=== PATIENT | male | born 1995 ===

== ENCOUNTER 2019-01-19 03:34 | Emergency (ER) | payer OTHER ==
--- NOTE | 2019-01-19 03:59 | ED ---
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 - History Of Current Complaint Chief Complaint: EDSubstanceAbuse Stated Complaint: ETOH PER EMS Time Seen by Provider: 01/19/19 03:44 Hx Obtained From: Patient Overdose Characteristics: Oral Timing Of Abuse: Binge Use Associated Signs And Symptoms: Vomiting - Allergies/Home Medications Allergies/Adverse Reactions: Allergies Allergy/AdvReac Type Severity Reaction Status Date / Time No Known Allergies Allergy Verified 01/19/19 03:44 Home Medications: Home Medications NK [No Home Medications Reported] 01/19/19 [History Confirmed 01/19/19] PMH/Surg Hx/FS Hx/Imm Hx Previously Healthy: No - LEVEL 5 CAVEAT ALCOHOL INTOXICATION - Surgical History Surgical History: Unable to Obtain/Confirm - LEVEL 5 CAVEAT ALCOHOL INTOXICATION Infectious Disease History: No Infectious Disease History: Denies: Traveled Outside the [place] in Last 30 Days - Family History Known Family History: Positive: Unknown - LEVEL 5 CAVEAT ALCOHOL INTOXICATION - Social History Occupation: Student Alcohol Use: Occasionally Substance Use Type: Reports: Other Substance Use Comment - Amount & Last Used: FRANK Smoking Status (MU): Unknown if Ever Smoked - Additional Comments History Additional Comments: LEVEL 5 CAVEAT ALCOHOL INTOXICATION Review of Systems All Other Systems Reviewed And Are Negative: No - Comments Additional Review of Systems Comments: LEVEL 5 CAVEAT ALCOHOL INTOXICATION Physical Exam - Summary Physical Exam Summary: LEVEL 5 CAVEAT ALCOHOL INTOXICATION Appearance: Well-appearing, Well-nourished, lying in bed comfortably Skin: Warm, dry, no obvious rash Eyes: sclera anicteric, no conjunctival pallor ENT: mucous membranes moist, pharynx appears normal Neck: Supple, nontender Respiratory: Clear to auscultation, no signs of respiratory distress Cardiovascular: Normal S1, S2. No murmurs. Normal distal pulses in tibial and radial bilaterally. Abdomen: Soft, nontender, normal active bowel sounds present Musculoskeletal: Normal, Strength/ROM Intact Neurological: Unresponsive to painful stimuli Psychiatric: affect is normal, does not appear anxious or depressed Triage Information Reviewed: Yes Vital Signs On Initial Exam: Initial Vitals Temp Pulse Resp BP Pulse Ox 96.8 F 69 16 108/69 96 01/19/19 03:36 01/19/19 03:36 01/19/19 03:36 01/19/19 03:36 01/19/19 03:36 Vital Signs Reviewed: Yes Diagnostics - Vital Signs Vital Signs Temp Pulse Resp BP Pulse Ox 01/19/19 03:36 96.8 F 69 16 108/69 96 - Laboratory Lab Statement: Any lab studies that have been ordered have been reviewed, and results considered in the medical decision making process. Course/Dx - Course Course Of Treatment: LEVEL 5 CAVEAT ALCOHOL INTOXICATION. This patient is a 23 year old M presenting to [facility] by EMS with a chief complaint of alcohol intoxication since [employer]FORMATION SYSTEM[employer]. Physical exam findings are nml, except pt is intoxicated and unresponsive to painful stimuli. Pt will be signed out to Dr. Arreguin at shift change at 0700 on 01/19/19, pending sobriety. - Diagnoses Provider Diagnoses: Alcohol intoxication Discharge ED - Sign-Out/Discharge Documenting (check all that apply): Sign-Out Patient Signing out patient TO: Nurys Arreguin - at shift change at 0700 on 01/19/19, pending sobriety. Receiving patient FROM: Todd Lundberg Patient Received Moderate/Deep Sedation with Procedure: No - Discharge Plan Condition: Improved Disposition: HOME Patient Education Materials: Alcohol Intoxication (ED), Abuse of Alcohol (ED) Referrals: [facility] [Outside] - Billing Disposition and Condition Condition: IMPROVED Disposition: Home - Attestation Statements Document Initiated by Becca: Yes Documenting Scribe: Anna Palacios Provider For Whom Robertae is Documenting (Include Credential): Todd Lundberg MD Scribe Attestation: Anna Corley, scribed for Todd Lundberg MD on 01/20/19 at 0619. Scribe Documentation Reviewed: Yes Provider Attestation: The documentation as recorded by the Anna santamaria accurately reflects the service I personally performed and the decisions made by me, Todd Lundberg MD Status of Scribe Document: Viewed
--- NOTE | 2019-01-19 07:21 | ED ---
Progress - Progress Note Progress Note: This patient is a 23-year old M presenting to [facility] with alcohol intoxication. This patient is a sign-out from Dr. Todd Lundberg to Dr. Nurys Arreguin at 0700 on 01/19/19 at shift change pending sobriety. Course/Dx - Course Course Of Treatment: This patient is a 23-year old M presenting to [facility] with alcohol intoxication. This patient is a sign-out from Dr. Todd Lundberg to Dr. Nurys Arreguin at 0700 on 01/19/19 at shift change pending sobriety. In the ED after sleeping, patient obtained sobriety and was able to ambulate around the department without difficulty. Patient is awake and oriented x3 and he reports feeling better. He is hemodynamically stable and safe for discharge. Strict return precautions given and he will otherwise follow up with his PCP. Patient will be discharged home with dx of alcohol intoxication. Patient understands and agrees with this plan. - Diagnoses Provider Diagnoses: Alcohol intoxication Discharge ED - Sign-Out/Discharge Documenting (check all that apply): Patient Departure - Discharge, Receiving Sign-Out Receiving patient FROM: Todd Lundberg Patient Received Moderate/Deep Sedation with Procedure: No - Discharge Plan Condition: Improved Disposition: HOME Patient Education Materials: Alcohol Intoxication (ED), Abuse of Alcohol (ED) Referrals: [facility] [Outside] - Billing Disposition and Condition Condition: IMPROVED Disposition: Home - Attestation Statements Document Initiated by Kristoferibe: Yes Documenting Scribe: Omkar Cano Provider For Whom Becca is Documenting (Include Credential): Nurys Arreguin MD Scribe Attestation: Omkar Corley scribed for Nurys Arreguin MD on 01/19/19 at 1802. Scribe Documentation Reviewed: Yes Provider Attestation: The documentation as recorded by the Omkar santamaria accurately reflects the service I personally performed and the decisions made by me, Nurys Arreguin MD Status of Scribe Document: Viewed
[2019-01-19 09:23] VITALS: BP 124/68
== END 2019-01-19 09:22 | disposition home or self-care (01) ==
LOC: ED 03:34
DX: F10.929 Alcohol use, unspecified with intoxication, unspecified (principal)
CPT/HCPCS: 99283